=== PATIENT | female | born 1960 | race Hispanic/Latino ===

== ENCOUNTER → 2017-04-18 | Outpatient (CLI) | payer SELFPAY | LOC: BICMAMMO 16:00 | PROVIDERS: ATTEND Internal Medicine | DX: Z12.31 Encounter for screening mammogram for malignant neoplasm of breast (principal) | CPT/HCPCS: 77067; G0202 ==

== ENCOUNTER 2018-07-18 08:08 | Outpatient (CLI) | payer OTHER ==
--- NOTE | 2018-07-18 08:32 | RAD ---
F2 views chest: 07/18/2018 COMPARISON: None HISTORY: Chronic pansinusitis FINDINGS: No pneumothorax, pleural fluid, focal consolidation, or alveolar edema. Mild upper thoracic spine disc space narrowing and anterior osteophyte formation. IMPRESSION: No acute findings.
--- NOTE | 2018-07-18 08:41 | RAD ---
SINUSES 3 VIEWS: Date: 07/18/18 HISTORY: Chronic pansinusitis. COMPARISON: None. FINDINGS: There appears to be adequate aeration of the bilateral frontal sinuses. There is size decrease of the right maxillary sinus relative to the left. The mastoids appear clear. Mandible is intact. IMPRESSION: Likely chronic right maxillary sinusitis. CT has greater sensitivity. POS: [facility]
--- NOTE | 2018-07-18 09:19 | ULT ---
FUltrasound neck: 07/18/2018 HISTORY: 57-year-old female with palpable right neck mass for one year FINDINGS: Ultrasound of the palpable area demonstrates unremarkable right submandibular gland. A few nonenlarge d adjacent lymph nodes are noted. IMPRESSION: 1. No definite pathology identified. 2. Recommend CT of the neck with contrast for the given history.
== END 2018-07-18 08:09 | disposition home or self-care (01) ==
LOC: BICRAD 08:08
PROVIDERS: ATTEND Family Medicine
DX: J32.4 Chronic pansinusitis (principal); R22.1 Localized swelling, mass and lump, neck
CPT/HCPCS: 70220; 71046; 76536

== ENCOUNTER 2023-04-12 09:37 | Emergency (ER) | payer OTHER, SELFPAY ==
[2023-04-12] MEDS ORDERED: Lidocaine 1% w/Epinephrine 1:100K 20 ML VIAL ONE (10:12)
[2023-04-12] MEDS ORDERED: Morphine 4 MG/ML VIAL ONE (10:16)
[2023-04-12] MEDS ORDERED: Ondansetron PF 4 MG/2 ML Vial ONE (10:16)
[2023-04-12] MEDS ORDERED: CEFAZOLIN 1 GM VIAL ONE (10:17)
[2023-04-12] MEDS ORDERED: Boostrix 0.5 ML (Tdap) VIAL (>/=7 yrs of age) ONE (10:17)
[2023-04-12] MEDS ORDERED: Sodium Chloride 0.9% 100 ML ONE (10:17)
[2023-04-12 10:42] LABS: #Eosinphils 0.1 thou/uL (0.0-0.7); #Monocytes 0.4 thou/uL (0.11-0.59); #Neutrophils 3.6 thou/uL (1.40-6.50); %Basophils 0.4 % (0.0-1.0); %Eosinophils 1.2 % (0.0-10.0); %Lymphocytes 28.4 % (21.0-51.0); %Monocytes 6.6 % (0.0-10.0); Hematocrit 41.5 % (36.0-47.0); Hemoglobin 13.5 g/dL (12.0-16.0); Mean Corpuscular HGB CONC 32.5 g/dL (32.0-36.0); Mean Corpuscular Volume 89.2 fl (78.0-98.0); Mean Platelet Volume 11.1 fL (7.4-10.4); Platelet Count 279 10x3/uL (130-400); RBC Distribution Width 13.4 % (11.5-14.5); Red Blood Cell (RBC) Count 4.65 mill/uL (4.20-5.40); White Blood Cell (WBC) Count 5.6 10x3/uL (4.8-10.8)
[2023-04-12] MEDS ORDERED: Iopamidol-370 76% 500 ML MDV (1 ML CHARGE) ONE (10:59)
[2023-04-12 11:11] LABS: ALT (SGPT) 19 U/L (8-55); AST (SGOT) 21 U/L (5-34); Albumin 4.3 g/dL (3.4-4.8); Alkaline Phosphatase 107 U/L (40-110); Anion Gap 14 mmol/L (10-20); BUN (Urea Nitrogen) 13 mg/dL (9.8-20.1); Bilirubin, Total 0.6 mg/dL (0.2-1.2); Calc. Creatinine Clearance 0 mL/min (70-130); Calcium 9.3 mg/dL (7.8-10.44); Carbon Dioxide 23 mmol/L (23-31); Chloride 107 mmol/L (98-107); Estimated GFR 93; Globulin 3.5 g/dL (2.4-3.5); Glucose 101 mg/dL (80-115); Potassium 4.4 mmol/L (3.5-5.1); Protein, Total 7.8 g/dL (5.8-8.1); Sodium 140 mmol/L (136-145)
== END 2023-04-12 13:19 | disposition home or self-care (01) ==
LOC: ERS 09:37
DX: S02.2XXA Fracture of nasal bones, initial encounter for closed fracture (principal); S01.21XA Laceration without foreign body of nose, initial encounter; S09.90XA Unspecified injury of head, initial encounter; M54.9 Dorsalgia, unspecified; Z23 Encounter for immunization; V73.9XXA Unspecified occupant of bus injured in collision with car, pick-up truck or van in traffic accident, initial encounter
CPT/HCPCS: 12011; 36415; 70450; 70486; 71045; 74177; 80053; 85025; 90471; 90715; 96365; 96375; J0690; J2270; J2405; J3490; Q9967

== ENCOUNTER 2024-03-24 13:54 | Outpatient (CLI) | payer MEDICARE, OTHER | END 2024-03-24 13:55 | disposition home or self-care (01) | LOC: BICMAMMO 13:54 | PROVIDERS: ATTEND Nurse Practitioner Family | DX: Z78.0 Asymptomatic menopausal state (principal) | CPT/HCPCS: 77080 ==